=== PATIENT | male | born 1960 ===

== ENCOUNTER 2024-01-09 02:31 | Inpatient (IN) | payer OTHER ==
[2024-01-09] MEDS ORDERED: SODIUM CHLORIDE 0.9% 1,000 ML BAG ONE (15:15)
[2024-01-09] MEDS ORDERED: LORazepam 2 MG/ML INJ ONE ×2 (15:17→17:07)
[2024-01-09] MEDS ORDERED: MIDAZOLAM 1 MG/ML 5 ML VIAL ONE (17:56)
[2024-01-09] MEDS ORDERED: cefTRIAXone 2 GM VIAL ONE (17:58)
[2024-01-09] MEDS ORDERED: MAGNESIUM SULFATE-D5W PMX 100 ML IVPB ONE ×2 (19:21→20:32)
[2024-01-09] MEDS ORDERED: THIAMINE 100 MG/ML 2 ML VIAL ONE (21:42)
[2024-01-09] MEDS ORDERED: DEXMEDETOMIDINE/0.9% NACL(PMX) 400 MCG/100 ML IV ONE (23:11)
[2024-01-10] MEDS ORDERED: DEXMEDETOMIDINE/0.9% NACL(PMX) 400 MCG/100 ML IV ONE ×4 (00:46→15:20)
[2024-01-10] MEDS ORDERED: POTASSIUM CHLORIDE 100 ML ONE ×4 (06:05→11:58)
[2024-01-10] MEDS ORDERED: FUROSEMIDE 10 MG/ML 4 ML VIAL ONE (07:53)
[2024-01-10] MEDS ORDERED: FAMOTIDINE 20 MG TAB ONE ×2 (08:03→20:36)
[2024-01-10] MEDS ORDERED: MULTIVITAMINS, THERA 1 EACH TAB ONE (08:03)
[2024-01-10] MEDS ORDERED: PANTOPRAZOLE 40 MG TABLET PO ONE (08:03)
[2024-01-10] MEDS ORDERED: ENOXAPARIN 40 MG/0.4 ML SYRINGE SQ ONE (08:03)
[2024-01-10] MEDS ORDERED: THIAMINE 100 MG TAB ONE (08:03)
[2024-01-10] MEDS ORDERED: ASPIRIN 81 MG ONE (10:48)
[2024-01-10] MEDS ORDERED: APIXABAN 5 MG TAB ONE (10:49)
[2024-01-10] MEDS ORDERED: ATORVASTATIN 20 MG TAB ONE (10:49)
[2024-01-10] MEDS ORDERED: POTASSIUM BICARBONATE/CIT AC 20 MEQ TABLET.EFF ONE (16:18)
[2024-01-10] MEDS ORDERED: NALOXONE 0.4 MG/ML 1 ML VIAL IV PRN (16:47)
[2024-01-10] MEDS ORDERED: DEXTROSE 5%-0.45% NACL 1,000 ML BAG IV ONE (23:59)
[2024-01-10] MEDS ORDERED: MVI, ADULT NO.4 WITH VIT K 10 ML VIAL IV ONE (23:59)
[2024-01-11] MEDS ORDERED: LORazepam 2 MG/ML INJ IV PRN ×2 (00:53)
[2024-01-11] MEDS ORDERED: ACETAMINOPHEN TAB 325 MG TAB PO PRN (01:01)
[2024-01-11] MEDS ORDERED: IBUPROFEN 400 MG TAB PO PRN (01:02)
[2024-01-11 03:12] LABS: African American GFR (CKD) >90 (>60 ml/min/1.73 sqM); Anion Gap 1 mmol/L; Blood Urea Nitrogen 15 mg/dL (9-20); Calcium 9.3 mg/dL (8.4-10.2); Carbon Dioxide 26 mmol/L (22-30); Chloride 104 mmol/L (98-107); Glucose 90 mg/dL (74-99); Non-African American GFR(CKD) >90 (>60 ml/min/1.73 sqM); Potassium 3.8 mmol/L (3.5-5.1); Sodium 131 mmol/L (137-145)
[2024-01-11] MEDS: Magnesium Replacement Protocol 1 EACH MISC MISCELLANE ONE (03:14)
[2024-01-11] MEDS: Phosphorus Replacement Protoco 1 EACH MISC MISCELLANE ONE (03:14)
[2024-01-11] MEDS: Potassium Replacement Protocol 1 EACH MISC MISCELLANE ONE (03:15)
[2024-01-11 04:27] LABS: Basophils % (A) 1 %; Eosinophils # (A) 0.3 k/uL (0-0.7); Eosinophils % (A) 6 %; HCT 43.6 % (39.0-53.0); HGB 14.7 gm/dL (13.0-17.5); Lymphocytes # (A) 0.9 k/uL (1.0-4.8); Lymphocytes % (A) 18 %; MCH 32.5 pg (25.0-35.0); MCHC 33.9 g/dL (31.0-37.0); MCV 95.9 fL (80.0-100.0); Mean Platelet Volume 9.3; Monocytes # (A) 0.5 k/uL (0-1.0); Monocytes % (A) 9 %; Neutrophils # (A) 3.4 k/uL (1.3-7.7); Neutrophils % (A) 65 %; Platelet Count 106 k/uL (150-450); RBC 4.54 m/uL (4.30-5.90); RDW 12.7 % (11.5-15.5); WBC 5.1 k/uL (3.8-10.6)
[2024-01-11] MEDS: LEVOTHYROXINE 100 MCG TAB PO SCH (06:20)
[2024-01-11 08:29] VITALS: TEMP 98.2
[2024-01-11] MEDS ORDERED: PANTOPRAZOLE 40 MG TABLET PO ONE (10:17)
[2024-01-11] MEDS ORDERED: ASPIRIN 81 MG ONE (10:17)
[2024-01-11] MEDS ORDERED: FAMOTIDINE 20 MG TAB ONE (10:18)
[2024-01-11 10:19] VITALS: BP 160/100; PULSE 96; RESP 16
[2024-01-11 10:19] LABS: Total Bilirubin 1.8 mg/dL (0.2-1.3)
[2024-01-11] MEDS: ASPIRIN 81 MG PO SCH (10:20)
[2024-01-11] MEDS: FAMOTIDINE 20 MG TAB PO SCH (10:20)
[2024-01-11] MEDS: PANTOPRAZOLE 40 MG TABLET PO SCH (10:20)
[2024-01-11] MEDS: MULTIVITAMINS, THERA 1 EACH TAB PO SCH (10:20)
[2024-01-11] MEDS: APIXABAN 5 MG TAB PO SCH (10:20)
[2024-01-11] MEDS: ATORVASTATIN 20 MG TAB PO SCH (10:21)
[2024-01-11] MEDS: METOPROLOL SUCCINATE (ER) 50 MG TAB.ER.24H PO SCH (10:47)
[2024-01-11] MEDS: [UNRECOGNIZED DRUG - REMARK] IV SCH (10:48)
[2024-01-11] MEDS: THIAMINE 100 MG TAB PO SCH (11:11)
--- NOTE | 2024-01-11 12:34 | P.PN ---
Subjective Progress Note Date: 01/11/24 Principal diagnosis: Acute delirium tremens/acute alcohol withdrawal Patient examined today on 01/11/2024, I saw this patient yesterday in consultation, patient presented with acute alcohol withdrawal/delirium tremens, his last alcoholic drink was last Friday. Patient came into the ER with acute visual and auditory hallucinations. Admitted, placed on Precedex which continued until 9 PM last night. Overnight, the patient has been doing well, remains on the CIWA protocol. Asymptomatic, patient feels much better, no more agitation, no more auditory or visual hallucinations. Patient is hemodynamically stable, and I plan to therapy the patient out of the ICU to the regular medical floor. WBC count today is 5.1 hemoglobin 14.7 basic metabolic profile is normal liver enzymes are a bit elevated. Total bilirubin is 1.8 Objective - Vital Signs Vital signs: Vital Signs Temp 98.2 F 01/11/24 08:00 Pulse 96 01/11/24 10:00 Resp 16 01/11/24 10:00 BP 160/100 01/11/24 10:00 Pulse Ox 98 01/11/24 10:00 FiO2 Intake & Output 01/10/24 01/11/24 01/11/24 18:59 06:59 18:59 Intake Total 400 400 Output Total 550 350 Balance -150 50 Weight 104.2 kg 105 kg Intake: IV 300 Dextrose 5%-0.45% NaCl 1, 300 000 ml @ 100 mls/hr IV . BY DURATION VINI Rx#: [id number] Intake, IV Titration 400 100 Amount Dextrose 5%-0.45% NaCl 1, 400 100 000 ml @ 100 mls/hr IV . BY DURATION VINI Rx#: [id number] Output: Urine 550 350 Other: Voiding Method Urinal Urinal # Voids 1 0 # Bowel Movements 1 - Exam General: The patient is awake and alert, in no distress, and does not appear acutely ill. Skin: Skin is warm and dry and no rashes or lesions are noted. Eye: Pupils are equal, round and reactive to light, extra-ocular movements are intact; there is normal conjunctiva bilaterally. Ears, nose, mouth and throat: There are moist mucous membranes and no oral lesions. Neck: The neck is supple, there is no tenderness or JVD. Cardiovascular: There is a regular rate and rhythm. No murmur, rub or gallop is appreciated. Respiratory: Clear bilaterally no rhonchi no wheezes Gastrointestinal: Soft, non-distended, non-tender abdomen without masses or organomegaly noted. There is no rebound or guarding present. Bowel sounds are unremarkable. Back: There is no tenderness to palpation in the midline. There is no obvious deformity. Musculoskeletal: Normal ROM, no tenderness, There is no pedal edema. There is no calf tenderness or swelling. No cords were appreciated. Neurological: CN II-XII intact, Cranial nerves III through XII are intact. There are no obvious motor or sensory deficits. Coordination appears grossly intact. Speech is normal. Psychiatric: Cooperative, appropriate mood & affect, normal judgment. - Labs CBC & Chem 7: 01/11/24 01:45 01/11/24 01:45 Labs: Abnormal Lab Results - Last 24 Hours (Table) 01/11/24 01/11/24 01/11/24 Range/Units 01:45 01:45 01:45 Plt Count 106 L (150-450) k/uL Lymphocytes # 0.9 L (1.0-4.8) k/uL Sodium 131 L (137-145) mmol/L Total Bilirubin 1.8 H (0.2-1.3) mg/dL AST 172 H (17-59) U/L ALT 141 H (4-49) U/L Assessment and Plan Assessment: Impression: Acute delirium tremens/acute alcohol withdrawal History of alcoholism, last drink was last Friday Benign essential hypertension History of benign positional vertigo History of TIA History of hypothyroidism Recommendation: Continue CIWA protocol Patient is now off Precedex Transfer patient out of the ICU to regular medical floor and continue to monitor . Resume home meds including Eliquis 5 mg twice daily and resume thyroid medications as well as blood pressure medication. Will continue to follow Time with Patient: Less than 30
--- NOTE | 2024-01-11 13:17 | P.DS ---
Providers Date of admission: 01/09/24 02:31 Expected date of discharge: 01/11/24 Attending physician: Wilfredo De Los Santos MD Consults: 01/09/24 18:30 Consult Physician Routine Consulting Provider: Bridget Obregon Consult Reason/Comments: ICU admit Do you want consulting provider notified?: Already Contacted 01/10/24 09:15 Consult Physician Routine Consulting Provider: Bola Watts Consult Reason/Comments: alcohol withdrawl Do you want consulting provider notified?: Already Contacted Primary care physician: Stated None Hospital Course: Discharge Diagnosis: Alcohol withdrawal Delirium tremens Hypertension Bradycardia Hypokalemia Hypothyroidism Paroxysmal atrial fibrillation Mild transaminitis Mild hyponatremia Hospital Course: 63-year-old male with history of alcohol dependence presenting with alcohol withdrawal and delirium tremens. Last drink 5 days ago. No history of seizures. Patient has history of chronic vertigo, and decided to quit alcohol. Started having severe withdrawal symptoms and hallucinations. Initially was hypertensive and tachycardic, withdrawal symptoms not controlled with IV Ativan. Patient was started on Precedex drip, transferred to medical ICU. Now off of Precedex drip, not requiring any Ativan. Patient to be discharged home with resources. Follow-up with PCP. Patient seen and examined at bedside. Vital signs reviewed and stable. General: Nontoxic, no distress, appears at stated age Derm: Warm, dry Head: Atraumatic, normocephalic, symmetric Eyes: EOMI, no lid lag, anicteric sclera Mouth: No lip lesion, mucus membranes moist Cardiovascular: S1S2 reg, no murmur Lungs: CTA bilateral, no rhonchi, no rales, no accessory muscle use Abdominal: Soft, nontender to palpation, no guarding, no appreciable organomegaly Ext: No gross muscle atrophy, no edema, no contractures Neuro: CN II-XI grossly intact, no focal neuro deficits Psych: Alert, oriented, appropriate affect A total of 33 minutes of time were spent preparing this complex discharge summary. Patient was discharged on 01/11/2024 at 1314. Plan - Discharge Summary New Discharge Prescriptions: New Apixaban [Eliquis] 5 mg PO BID tab Atorvastatin [Lipitor] 20 mg PO DAILY tab Levothyroxine Sodium [Synthroid] 200 mcg PO DAILY@0630 tab Metoprolol Succinate (ER) [Toprol XL] 50 mg PO DAILY tab Thiamine [Vitamin B-1] 100 mg PO DAILY@1200 #90 tab Discharge Medication List Apixaban [Eliquis] 5 mg PO BID tab 01/11/24 [Rx] Atorvastatin [Lipitor] 20 mg PO DAILY tab 01/11/24 [Rx] Levothyroxine Sodium [Synthroid] 200 mcg PO DAILY@0630 tab 01/11/24 [Rx] Metoprolol Succinate (ER) [Toprol XL] 50 mg PO DAILY tab 01/11/24 [Rx] Thiamine [Vitamin B-1] 100 mg PO DAILY@1200 #90 tab 01/11/24 [Rx] Patient Instructions/Handouts: Abuse of Alcohol (DC), Alcohol Withdrawal (DC), Alcohol Dependence (DC) Activity/Diet/Wound Care/Special Instructions: Please see your PCP. Discharge/Stand Alone Forms: AA Meetings [facility], Outpatient Counseling
--- NOTE | 2024-01-28 06:35 | CT ---
Patient: Sony Xavier Ordering Physician: Unknown, Unknown ID: [id number] Phone, Pager: Phone: N/A Pager: N/A : 08/18/1961 Age/Gender: 62Y, M Primary Location: N/A Procedure: CT brain wo con Study Date: 01/09/2024 4:00:00 PM EXAMINATION TYPE: CT brain wo con DATE OF EXAM: 01/09/2024 COMPARISON: None HISTORY: 62-year-old male hallucinations TECHNIQUE: Examination was done in axial plane without intravenous contrast. Coronal and sagittal r econstructions performed. CT DLP: 1213.4 mGycm Automated exposure control for dose reduction was used. FINDINGS: There is no evidence of acute intracranial hemorrhage, acute ischemic changes, mass, mass-effect, or extra-axial fluid collection. There is no effacement of cerebral sulci or basal subarachnoid cister ns. There is no hydrocephalus. There is no midline shift. Ma-white matter distinction is preserv ed. 2.2 cm mucosal retention cyst floor of the left maxillary sinus. Rightward nasal septal deviation. Or bits and globes are intact. Mastoid air cells well pneumatized. IMPRESSION: No acute intracranial abnormality seen.
--- NOTE | 2024-02-02 09:19 | XR ---
Patient: Sony Xavier Ordering Physician: Unknown, Unknown ID: [id number] Phone, Pager: Phone: N/A Pager: N/A : 08/18/1961 Age/Gender: 62Y, M Primary Location: N/A Procedure: XR chest 2V Study Date: 01/09/2024 4:16:59 PM EXAMINATION TYPE: XR chest 2V DATE OF EXAM: 01/09/2024 COMPARISON: None HISTORY: 62 year-old male altered mental status from alcohol withdrawal, confusion TECHNIQUE: PA and lateral views FINDINGS: Heart upper limits of normal in size. Low lung volumes with crowded vascular markings and interstitia l prominence. No consolidation or pleural effusion. IMPRESSION: Findings likely due to hypoventilatory changes with crowded vascular markings. Otherwise, no definite acute process.
--- NOTE | 2024-02-13 08:31 | CONS ---
CONSULTATION An attempt was made to see the patient for an assessment. The patient requested for a psychiatric evaluation. He states that he was having alcohol withdrawal symptoms with hallucinations and at times mental confusion. The patient since this presentation has been started on Precedex and detox protocol and CIWA protocol and at this time is sleeping soundly. The patient is unable to participate and the case was discussed with the patient's nurse, Renae, who was available on the unit. She reported that the patient is too sedated and obtunded to be able to participate in the assessment that after couple of days of detox that the patient could be attempted for further evaluation. The patient at this time appears to be sleeping restfully and does not appear to be in acute distress. We will retry for a psychiatric consultation in the next few days. Thank you very much for your kind referral and please contact me if you have any further questions. ADYL / IJN: [id number] /
== END 2024-01-11 14:13 | disposition home or self-care (01) | DRG 897 ==
LOC: UNDOADMIN 02:31 → 2SICU 02:31 → UNDODISIN 01-11 14:13
PROVIDERS: ADMIT Student in an Organized Health Care Education/Training Program; ATTEND Student in an Organized Health Care Education/Training Program
DX: F10.231 Alcohol dependence with withdrawal delirium (principal); E87.1 Hypo-osmolality and hyponatremia; R00.1 Bradycardia, unspecified; I10 Essential (primary) hypertension; E87.6 Hypokalemia; E03.9 Hypothyroidism, unspecified; I48.0 Paroxysmal atrial fibrillation; Z79.01 Long term (current) use of anticoagulants; R74.01 Elevation of levels of liver transaminase levels; Z79.890 Hormone replacement therapy; Z79.899 Other long term (current) drug therapy; Z86.73 Personal history of transient ischemic attack (TIA), and cerebral infarction without residual deficits
CPT/HCPCS: 70450; 71046; 80048; 82247; 84450; 84460; 85025; 93005; 96361; 96365; 96375; 99285